=== PATIENT | male | born 1940 | race Caucasian/White ===

== ENCOUNTER → 2024-03-27 08:09 | Outpatient (REF) | payer OTHER, SELFPAY | LOC: HWRAD 08:09 | PROVIDERS: ATTENDING PHYSICIAN Nurse Practitioner Family; FAMILY PHYSICIAN Internal Medicine Geriatric Medicine | DX: R91.8 Other nonspecific abnormal finding of lung field (principal) | CPT/HCPCS: 71250 ==

== ENCOUNTER → 2024-08-08 07:44 | Outpatient (REF) | payer OTHER, SELFPAY | LOC: RAD 07:44 | PROVIDERS: ATTENDING PHYSICIAN Internal Medicine Geriatric Medicine | DX: R14.0 Abdominal distension (gaseous) (principal) | CPT/HCPCS: 74177; Q9967 ==

== ENCOUNTER 2024-09-16 09:45 | Emergency (ER) | payer OTHER, SELFPAY ==
[2024-09-16 09:51] VITALS: BP 130/64
--- NOTE | 2024-09-16 11:54 | ED.GENMED ---
History of Present Illness
General
Chief Complaint: Skin Surface Trauma
Source: patient
Exam Limitations: none
Time Seen by Provider: 09/16/24 10:49
Nursing documentation reviewed up to this point in time: agreed with
History of Present Illness
History of Present Illness:
Patient is an 83-year-old male who presents to the ER for evaluation. He reports a little over a week ago he fell down his steps and since then has had a lump to his left lateral thigh associate with bruising. He feels that the lump is getting
bigger which is what prompted him to go to urgent care. Urgent care sent here to the ER. He is on aspirin but no other blood thinners. He has no longer on Plavix.
Review of Systems
Review of Systems
Allergies reviewed?: Yes
All Other Systems: ROS reviewed and negative except as documented in HPI and ROS
Constitutional: Reports no symptoms; Denies fever, fatigue or chills
Respiratory: Reports no symptoms
Cardiac: Reports no symptoms
ABD/GI: Reports no symptoms
Musculoskeletal: Reports other (bruising /swelling to left lateral thigh)
Skin: Reports no symptoms
Neurological: Reports no symptoms
Hematologic/Lymphatic: Reports no symptoms
Psychiatric: Reports no symptoms
Phy Exam
General Physical Exam
General Presentation: no apparent distress
General age: appears stated age
General Skin: warm and dry
General Habitus: normal
General Mental: alert
General Hydration: appears well hydrated
Neurological Exam
Neurological Exam: alert and oriented x3
Musculoskeletal Exam
Musculoskeletal Exam: other (Left lateral thigh/with ecchymosis palpable left lateral thigh hematoma)
Skin Exam
Skin Exam: normal color and warm/dry
Psychiatric Exam
Psychiatric Exam: normal mood/affect
Course
Orders/Labs/Results
Orders:
Orders
09/16/24 11:48
Periph Venous Lwr Ext Left US [US Periph Venous LOWER Ext LT] Urgent
Comment:
Reason For Exam: eval for possible hematoma left thigh versus dvt
09/16/24 12:06
Complete Blood Count/With Diff Urgent
Comprehensive Metabolic Panel Urgent
Abnormal Lab Results
09/16/24
12:06
RBC 4.19 L 10^6/uL
(4.70-6.10)
MCV 95.9 H fL
(80.0-94.0)
MCH 33.2 H pg
(27.0-31.0)
Monocytes % 9.8 H %
(1.7-9.3)
Carbon Dioxide 31 H mmol/L
(22-30)
Calcium 10.3 H mg/dl
(8.4-10.2)
09/16/24 12:06
09/16/24 12:06
Vital Signs
Initial and Last Documented VS:
Initial Vital Signs
Temp Pulse Resp BP Pulse Ox
98.4 F 58 16 130/64 95
09/16/24 09:51 09/16/24 09:51 09/16/24 09:51 09/16/24 09:51 09/16/24 09:51
Last Documented Vital Signs
Temp Pulse Resp BP Pulse Ox
97.7 F 56 18 149/82 99
09/16/24 14:14 09/16/24 14:14 09/16/24 14:14 09/16/24 14:14 09/16/24 14:14
MDM/Problems Addressed
Differential Diagnosis Includes:
not limited to hematoma, less likely DVT
MDM/Problems Addressed:
Symptoms are consistent with hematoma, no evidence of DVT. Hemoglobin stable. Discussed warm compresses and elevation.
*Critical Care Note
Total Time (30-74mins, 75-104mins- exclusive of procedures): Not Applicable
ED Attending Note
-
Portions of this chart may have been created with voice recognition software.� Occasional wrong word or��sound alike� substitutions may have occurred due to the inherent limitations of voice recognition software.
Discharge Plan
Departure
Patient Disposition: Home (Routine Discharge)
Date of Disposition: 09/16/24
Time of Disposition: 14:09
Patient with high blood pressure during this ER visit?: Yes
Condition: Fair
Covid-19: Not Applicable
Discharge Problem:
Hematoma
Instructions: Hematoma
Prescriptions:
No Action
multivitamin 1 EACH tablet
1 ea PO DAILY
atorvastatin 20 MG tablet
20 mg PO HS
felodipine 5 MG tablet extended release 24 hr
5 mg PO DAILY
losartan-hydrochlorothiazide 1 TAB tablet
1 tab PO DAILY
tamsulosin 0.4 MG capsule
0.4 mg PO HS
aspirin [Angie Chewable Aspirin] 81 MG tablet,chewable
81 mg PO HS
nadolol [Corgard] 40 MG tablet
40 mg PO HS
clopidogrel 75 MG tablet
75 mg PO DAILY Qty: 90 3RF
Referrals:
Toribio Higuera MD [Family Provider] -
Activity Restrictions/Additional Instructions:
As discussed you may apply warm moist compresses to affected area .
keep elevated as much as possible. Ultrasound was negative for blood clot it; does show a hematoma as discussed. Your hemoglobin and labs are stable. Follow-up with your family doctor the neck several days return if any worsening of symptoms.
Interventions
Interventions:
*Risk Screen - Suicide Last Done: 09/16/24 09:56
*General Assessment Last Done: 09/16/24 14:16
*Neglect/Abuse Screening Last Done: 09/16/24 09:56
*ED- Fall Risk Assessment Last Done: 09/16/24 14:16
*ED COVID-19 Vaccine History Last Done: 09/16/24 14:16
*Nursing Disposition Last Done: 09/16/24 14:16
ED-Skin Assessment Last Done: 09/16/24 11:10
Discharge Date and Time
Discharge Date/Time: 09/16/24 14:19
Print Language: NORWEGI[place]
[2024-09-16 12:23] LABS: Hematocrit 40.2 % (39.0-52.0); Hemoglobin 13.9 g/dL (13.0-18.0); Mean Corp Hgb Conc. 34.6 g/dL (33.0-37.0); Mean Corpuscular Hgb 33.2 pg (27.0-31.0); Mean Corpuscular Volume 95.9 fL (80.0-94.0); Mean Platelet Volume 9.9 fL (7.4-10.4); Platelet Count 154 10^3/uL (130-400); Red Blood Cell Count 4.19 10^6/uL (4.70-6.10); Red Cell Dist. Width 12.9 % (11.5-14.5); White Blood Cell Count 6.3 10^3/uL (4.8-10.8)
[2024-09-16 12:33] LABS: ALT (SGPT) 31 U/L (0-50); AST (SGOT) 25 U/L (17-59); Albumin 3.7 g/dl (3.5-5.0); Alkaline Phosphatase 39 U/L (38-126); Blood Urea Nitrogen 14 mg/dl (9-20); Calcium 10.3 mg/dl (8.4-10.2); Carbon Dioxide 31 mmol/L (22-30); Chloride 101 mmol/L (98-107); Glucose 89 mg/dl (70-99); Potassium 3.9 mmol/L (3.5-5.1); Sodium 137 mmol/L (135-145); Total Bilirubin 1.1 mg/dl (0.2-1.3); Total Protein 6.5 g/dl (6.3-8.2); eGFR > 60.00
[2024-09-16 13:48] LABS: % Basophils 0.3 % (0-2); % Eosinophils 1.1 % (0-6); % Immature Granulocytes 0.3 % (0-0.5); % Lymphocytes 34.4 % (20.5-51.1); % Monocytes 9.8 % (1.7-9.3); % Neutrophils 54.1 % (42.2-75.2); Absolute Eosinophils 0.1 10^3/uL (0-0.7); Absolute Lymphocytes 2.2 10^3/uL (1.2-3.4); Absolute Monocytes 0.6 10^3/uL (0.1-0.6); Absolute Neutrophils 3.4 10^3/uL (1.4-6.5); Nucleated Red Blood Cells % 0 % (-)
[2024-09-16 14:14] VITALS: BP 149/82
== END 2024-09-16 14:19 | disposition home or self-care (01) ==
LOC: EMR 09:45
PROVIDERS: Nurse Practitioner; EMERGENCY PHYSICIAN Emergency Medicine; FAMILY PHYSICIAN Internal Medicine Geriatric Medicine
DX: S70.12XA Contusion of left thigh, initial encounter (principal); W10.9XXA Fall (on) (from) unspecified stairs and steps, initial encounter; Z79.82 Long term (current) use of aspirin
CPT/HCPCS: 99284; 80053; 85025; 93971

== ENCOUNTER → 2024-12-09 07:17 | Outpatient (REF) | payer OTHER, SELFPAY | LOC: PAVMRI 07:17 | PROVIDERS: ATTENDING PHYSICIAN Internal Medicine Geriatric Medicine | DX: R93.5 Abnormal findings on diagnostic imaging of other abdominal regions, including retroperitoneum (principal); R10.84 Generalized abdominal pain; R14.0 Abdominal distension (gaseous) | CPT/HCPCS: 74185; A9585 ==